=== PATIENT | male | born 1965 | race Caucasian/White ===

== ENCOUNTER 2018-05-09 09:59 | Emergency (ER) | payer BC ==
[2018-05-09] MEDS ORDERED: Sodium Chloride 0.9% 10 ML Syringe FLUSH PRN (10:25)
[2018-05-09] MEDS ORDERED: diphenhydrAMINE 50 MG/ML SDV IVPUSH ONE (10:27)
[2018-05-09] MEDS ORDERED: Prochlorperazine 10 MG/2 ML SDV IVPUSH ONE (10:27)
[2018-05-09] MEDS ORDERED: HYDROmorphone 0.5 MG/0.5 ML SYRINGE IVPUSH ONE (10:27)
--- NOTE | 2018-05-09 10:34 | EDM.PDOC ---
ED HPI GENERAL MEDICAL PROBLEM - General Chief Complaint: Headache Stated Complaint: SEVERE HEAD ACHE/ DIZZYNESS Time Seen by Provider: 05/09/18 10:18 Source of Information: Reports: Patient History Limitations: Reports: No Limitations - History of Present Illness INITIAL COMMENTS - FREE TEXT/NARRATIVE: The patient presents with a headache. This has been going on for 8 days. He has a constant headache to the top of the head and left parietal region. The pain gets worse at times. The pain is sharp. He does not notice anything that makes it worse or better. He has been taking aleve and that has not been helping. He went to the walk in clinic at [place] and they sent him over here. He says 2 days ago at work he passed out. He did not hit his head or get hurt. He said things went white and they he went down. He denies fever, chills , cough, chest pain, shortness of breath, abdominal pain, nausea or vomiting. He has no blurred vision or double vision. He has no numbness or weakness. He does not have a history of headaches. He does have a history of high blood pressure. He thinks he is on HCTZ and lisinopril. There has been no recent changes to those medications. He says there is a family history of strokes in the family. He says he does feel off balance at times. He has also been forgetful the past few days. 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 Headache Pain Score (Numeric/FACES): 7 - Related Data Allergies Allergy/AdvReac Type Severity Reaction Status Date / Time No Known Allergies Allergy Verified 05/09/18 10:37 Home Meds: Home Meds Amoxicillin 1,000 mg PO BID #40 tab 05/09/18 [Rx] Hydrocodone/Acetaminophen [Hydrocodon-Acetaminophen 5-325] 1 - 2 each PO Q6HR PRN #20 tablet 05/09/18 [Rx] ED ROS GENERAL - Review of Systems Review Of Systems: See Below Constitutional: Reports: No Symptoms HEENT: Reports: No Symptoms Respiratory: Reports: No Symptoms Cardiovascular: Reports: No Symptoms Endocrine: Reports: No Symptoms GI/Abdominal: Reports: No Symptoms : Reports: No Symptoms Musculoskeletal: Reports: No Symptoms Skin: Reports: No Symptoms Neurological: Reports: Confusion, Dizziness, Headache - Physical Exam Exam: See Below Exam Limited By: No Limitations General Appearance: Alert, No Apparent Distress Ears: Normal External Exam Nose: Normal Inspection Head Exam: Atraumatic, Normocephalic Neck: Normal Inspection Respiratory/Chest: No Respiratory Distress, Lungs Clear, Normal Breath Sounds Cardiovascular: Regular Rate, Rhythm, No Edema, No Murmur GI/Abdominal: Soft, Non-Tender, No Organomegaly, No Mass Neuro Exam (Abbreviated): Alert, Oriented, No Motor/Sensory Deficits, Other ( Normal finger to nose and heel to bañuelos) Course - Vital Signs Last Recorded V/S: Last Vital Signs Temp 98.2 F 05/09/18 10:04 Pulse 58 L 05/09/18 11:28 Resp 20 05/09/18 11:28 BP 136/82 05/09/18 11:28 Pulse Ox 93 L 05/09/18 11:28 - Orders/Labs/Meds Orders: Active Orders 24 hr Category Date Time Status Cardiac Monitoring [RC] . DIRECTED Care 05/09/18 10:25 Active EKG Documentation Completion [RC] STAT Care 05/09/18 10:26 Active Peripheral IV Care [RC] . DIRECTED Care 05/09/18 10:26 Active Head wo Cont [CT] Stat Exams 05/09/18 10:26 Taken Sodium Chloride 0.9% [Saline Flush] Med 05/09/18 10:25 Active 10 ml FLUSH ASDIRECTED PRN Peripheral IV Insertion Adult [OM.PC] Stat Oth 05/09/18 10:25 Ordered Medication Orders Sodium Chloride (Saline Flush) 10 ml FLUSH ASDIRECTED PRN PRN Reason: Keep Vein Open Last Admin: 05/09/18 10:56 Dose: 10 ml Labs: Laboratory Tests 05/09/18 05/09/18 Range/Units 10:20 10:20 WBC 8.28 (4.23-9.07) K/mm3 RBC 4.87 (4.63-6.08) M/mm3 Hgb 15.7 (13.7-17.5) gm/L Hct 46.5 (40.1-51.0) % MCV 95.5 H (79.0-92.2) fl MCH 32.2 (25.7-32.2) pg MCHC 33.8 (32.2-35.5) g/dl RDW Std Deviation 47.1 H (35.1-43.9) fL Plt Count 200 (163-337) K/mm3 MPV 11.6 (9.4-12.3) fl Neut % (Auto) 64.2 (34.0-67.9) % Lymph % (Auto) 25.1 (21.8-53.1) % [place] % (Auto) 8.8 (5.3-12.2) % Eos % (Auto) 1.1 (0.8-7.0) Baso % (Auto) 0.6 (0.1-1.2) % Neut # (Auto) 5.31 (1.78-5.38) K/mm3 Lymph # (Auto) 2.08 (1.32-3.57) K/mm3 [place] # (Auto) 0.73 (0.30-0.82) K/mm3 Eos # (Auto) 0.09 (0.04-0.54) K/mm3 Baso # (Auto) 0.05 (0.01-0.08) K/mm3 Sodium 142 (136-145) mEq/L Potassium 4.3 (3.5-5.1) mEq/L Chloride 106 (98-107) mEq/L Carbon Dioxide 29 (21-32) mEq/L Anion Gap 11.3 (5-15) BUN 14 (7-18) mg/dL Creatinine 1.0 (0.7-1.3) mg/dL Est Cr Clr Drug Dosing 98.77 mL/min Estimated GFR (MDRD) > 60 (>60) mL/min BUN/Creatinine Ratio 14.0 (14-18) Glucose 102 (74-106) mg/dL Calcium 9.0 (8.5-10.1) mg/dL Total Bilirubin 0.4 (0.2-1.0) mg/dL AST 20 (15-37) U/L ALT 47 (16-63) U/L Alkaline Phosphatase 70 (46-116) U/L Troponin I < 0.017 (0.00-0.056) ng/mL Total Protein 7.4 (6.4-8.2) g/dl Albumin 3.7 (3.4-5.0) g/dl Globulin 3.7 gm/dL Albumin/Globulin Ratio 1.0 (1-2) Meds: Medications Generic Name Dose Route Start Last Admin Trade Name Fiona PRN Reason Stop Dose Admin Sodium Chloride 10 ml 05/09/18 10:25 05/09/18 10:56 Saline Flush FLUSH 10 ml ASDIRECTED PRN Administration Keep Vein Open Discontinued Medications Generic Name Dose Route Start Last Admin Trade Name Fiona PRN Reason Stop Dose Admin Diphenhydramine HCl 50 mg 05/09/18 10:27 05/09/18 10:52 Benadryl IVPUSH 05/09/18 10:28 50 mg ONETIME ONE Administration Hydromorphone HCl 0.5 mg 05/09/18 10:27 05/09/18 10:50 Dilaudid IVPUSH 05/09/18 10:28 0.5 mg ONETIME ONE Administration Hydromorphone HCl Confirm 05/09/18 10:42 05/09/18 10:56 Dilaudid Administered 05/09/18 10:43 Not Given Dose 0.5 mg .ROUTE .STK-MED ONE Ketorolac Tromethamine 30 mg 05/09/18 11:42 05/09/18 11:50 Toradol IVPUSH 05/09/18 11:43 30 mg ONETIME ONE Administration Prochlorperazine Edisylate 10 mg 05/09/18 10:27 05/09/18 10:47 Compazine IVPUSH 05/09/18 10:28 10 mg ONETIME ONE Administration - Re-Assessments/Exams Free Text/Narrative Re-Assessment/Exam: 05/09/18 10:36 I ordered an IV saline lock, EKG, CT of his head, labs, compazine 10mg IV, dilaudid 0.5mg IV, and benadryl 50mg IV. 05/09/18 11:52 His EKG shows a NSR with no acute changes. The CT of his head shows near complete opacification of the let sphenoid sinus but no evidence of acute intracranial pathology. His CBC and CMP look good. His headache is better but not gone yet. I ordered some toradol. I talked to him about possibly getting an MRI. I was going to check and see if I could get one done today or in a few days. He did not want that done. He would like to see his doctor back home and possibly have it done then. I will need to treat him for the sinusitis with amoxicillin and pseudophed. I will see if the toradol helps. 05/09/18 12:31 He feels better. He wants to go now. I will discharge him home. Departure - Departure Time of Disposition: 12:35 Disposition: Home, Self-Care 01 Condition: Good Clinical Impression: Headache Qualifiers: Headache type: unspecified Headache chronicity pattern: acute headache Intractability: not intractable Qualified Code(s): R51 - Headache Syncope Qualifiers: Syncope type: unspecified Qualified Code(s): R55 - Syncope and collapse Sinusitis Qualifiers: Sinusitis location: sphenoidal Chronicity: acute Recurrence: not specified as recurrent Qualified Code(s): J01.30 - Acute sphenoidal sinusitis, unspecified - Discharge Information *PRESCRIPTION DRUG MONITORING PROGRAM REVIEWED*: No *COPY OF PRESCRIPTION DRUG MONITORING REPORT IN PATIENT PADDY: No Prescriptions: Hydrocodone/Acetaminophen [Hydrocodon-Acetaminophen 5-325] 1 - 2 each PO Q6HR PRN #20 tablet PRN Reason: Pain Amoxicillin 1,000 mg PO BID #40 tab Referrals: PCP,Not In Area [Primary Care Provider] - Forms: ED Department Discharge Additional Instructions: Take the amoxicillin 1,000mg 2 times per day for 10 days. Take the hydrocodone as needed for pain. Try some pseudophed to help with the sinusitis. Please return if you are worse such as more of a headache, vomiting, numbness or weakness. See your provider when you get home. If you still have the headache you may need an MRI of your brain. - My Orders Last 24 Hours: My Active Orders 05/09/18 10:25 Cardiac Monitoring [RC] . DIRECTED Sodium Chloride 0.9% [Saline Flush] 10 ml FLUSH ASDIRECTED PRN Peripheral IV Insertion Adult [OM.PC] Stat 05/09/18 10:26 EKG Documentation Completion [RC] STAT Peripheral IV Care [RC] . DIRECTED Head wo Cont [CT] Stat - Assessment/Plan Last 24 Hours: My Active Orders 05/09/18 10:25 Cardiac Monitoring [RC] . DIRECTED Sodium Chloride 0.9% [Saline Flush] 10 ml FLUSH ASDIRECTED PRN Peripheral IV Insertion Adult [OM.PC] Stat 05/09/18 10:26 EKG Documentation Completion [RC] STAT Peripheral IV Care [RC] . DIRECTED Head wo Cont [CT] Stat
[2018-05-09] MEDS ORDERED: HYDROmorphone 0.5 MG/0.5 ML SYRINGE ONE (10:42)
[2018-05-09] MEDS ORDERED: Ketorolac 30 MG/ML SDV IVPUSH ONE (11:42)
== END 2018-05-09 12:57 | disposition home or self-care (01) ==
LOC: JD.ED 09:59
DX: R51 Headache (principal); R55 Syncope and collapse; J01.30 Acute sphenoidal sinusitis, unspecified; I10 Essential (primary) hypertension
CPT/HCPCS: 36415; 70450; 80053; 84484; 85025; 93005; 96374; 96375; 99284; J0780; J1170; J1200; J1885; J7050; 93010